=== PATIENT | male | born 1995 | race Two or more races ===

== ENCOUNTER 2020-07-29 08:18 | Emergency (ER) | payer MEDICARE, OTHER ==
[~2020-07-29] VITALS: Ht 162.6 cm; Wt 77.1 kg
--- NOTE | 2020-07-29 08:35 | NUR ---
SEEN AND EXAMINED BY .
--- NOTE | 2020-07-29 08:49 | NUR ---
FRANCHISE SALES MANAGER AT BEDSIDE FOR XRAY.
[2020-07-29 09:40] VITALS: BP 128/77
--- NOTE | 2020-07-29 09:41 | NUR ---
Patient discharged to home in stable condition. Written and verbal after care instructions given. Patient verbalizes understanding of instruction.Patient given written and verbal discharge instructions. Patient verbalizes understanding of instructions. Patient is ambulatory with steady gait. Refuses offer of half-way placement. Patient given list of available shelters in surrounding area.
== END 2020-07-29 09:40 | disposition home or self-care (01) ==
LOC: ER 08:29
DX: B35.3 Tinea pedis (principal); L03.116 Cellulitis of left lower limb; L03.115 Cellulitis of right lower limb; Z59.0 Homelessness

== ENCOUNTER 2022-03-31 11:06 | Emergency (ER) | payer MEDICARE, OTHER ==
[~2022-03-31] VITALS: Ht 160 cm; Wt 81.6 kg
--- NOTE | 2022-03-31 11:32 | NUR ---
DR. HERNANDEZ W/ PT FOR EVAL
[2022-03-31] MEDS ORDERED: OLANZAPINE 5 MG TABLET ONE (11:42)
--- NOTE | 2022-03-31 11:44 | NUR ---
PHLEB TECH AT BEDSIDE FOR BLOOD DRAW
[2022-03-31 11:53] LABS: BASOPHILS % (AUTO) 0.6 % (0.0-2.0); HEMATOCRIT 43 % (39-51); HEMOGLOBIN 14.2 g/dL (13.5-17.5); LYMPHOCYTES # (AUTO) 1.5 K/uL (0.8-4.8); LYMPHOCYTES % (AUTO) 24.7 % (20.0-44.0); MEAN CORPUSCULAR HGB CONC 33 g/dl (31.0-36.0); MEAN CORPUSCULAR VOLUME 87 fL (80-96); MONOCYTES # (AUTO) 0.4 K/uL (0.1-1.30); MONOCYTES % (AUTO) 6.9 % (2.0-12.0); NEUTROPHILS % (AUTO) 66.8 % (43.0-81.0); PLATELET COUNT (AUTO) 313 K/uL (150-450); RED BLOOD CELL COUNT(AUTO) 4.88 MIL/uL (4.5-6.0)
[2022-03-31] MEDS ORDERED: OLANZAPINE 5 MG TABLET PO ONE (12:00)
[2022-03-31 12:11] LABS: ALANINE AMINOTRANSFERASE 22 U/L (12-78); ALBUMIN 4.2 g/dL (3.4-5.0); ALKALINE PHOSPHATASE 89 U/L (46-116); ASPARTATE AMINOTRANSFERASE 16 U/L (15-37); BILIRUBIN,DIRECT 0.1 mg/dL (0.0-0.2); BILIRUBIN,TOTAL 0.5 mg/dL (0.2-1.0); CALCIUM, SERUM 9.1 mg/dL (8.5-10.1); CARBON DIOXIDE 27 mmol/L (21-32); CHLORIDE 102 mmol/L (98-107); GLUCOSE 114 mg/dL (74-106); POTASSIUM 3.7 mmol/L (3.5-5.1); SODIUM SERUM 135 mmol/L (136-145); TOTAL PROTEIN, SERUM 7.7 g/dL (6.4-8.2); UREA NITROGEN, BLOOD 12 mg/dL (7-18)
[2022-03-31 12:16] LABS: ACETAMINOPHEN < 0 ug/ml (10-30); ALCOHOL, BLOOD < 3 mg/dL (0-0)
--- NOTE | 2022-03-31 12:37 | NUR ---
URINE SAMPLE COLLECTED AND SENT TO LAB.
--- NOTE | 2022-03-31 12:42 | NUR ---
COVID SWAB DONE AND SENT TO LAB
[2022-03-31 13:25] LABS: BILIRUBIN,URINE NEGATIVE (NEGATIVE); COLOR,URINE YELLOW (YELLOW); LEUKOCYTE ESTERASE ,URINE NEGATIVE (NEGATIVE); NITRITE, URINE NEGATIVE (NEGATIVE); PROTEIN,URINE NEGATIVE (NEGATIVE); UGLUCOSE NEGATIVE (NEGATIVE)
[2022-03-31 13:48] LABS: BACTERIA,URINE Rare /HPF (None Seen); SPERM,URINE Few /HPF (None Seen); SQUAMOUS EPITHELIAL CELL,UR Few /HPF (None Seen); WBC,URINE 0-2 /HPF (0-3)
--- NOTE | 2022-03-31 14:57 | NUR ---
Patient discharged to home in stable condition. Written and verbal after care instructions given. Patient verbalizes understanding of instruction.
[2022-03-31 14:59] VITALS: BP 126/62
== END 2022-03-31 14:59 | disposition home or self-care (01) ==
LOC: ER 11:14
DX: R46.2 Strange and inexplicable behavior (principal); Z20.822 Contact with and (suspected) exposure to COVID-19; Z59.01 Sheltered homelessness
CPT/HCPCS: 36415; 80048-TC; 80076-TC; 81001; 85025-TC; C9803; G0480

== ENCOUNTER 2023-04-20 11:11 | Emergency (ER) | payer MEDICARE, OTHER ==
[~2023-04-20] VITALS: Ht 162.6 cm; Wt 82.6 kg
[~2023-04-20 11:11] MED LIST: CEPH500C2 PO; SULF1TAB48 PO; TERB250T52 PO
[2023-04-20 11:26] VITALS: BP 101/58; TEMP 98.3; O2SAT 98
[2023-04-20] MEDS ORDERED: CLOT10SO TP (11:29)
== END 2023-04-20 11:25 | disposition home or self-care (01) ==
LOC: ER 11:16
DX: B35.3 Tinea pedis (principal); F17.200 Nicotine dependence, unspecified, uncomplicated; Z59.00 Homelessness unspecified; Z60.2 Problems related to living alone

== ENCOUNTER 2023-04-24 15:06 | Emergency (ER) | payer MEDICARE, OTHER ==
[~2023-04-24] VITALS: Ht 162.6 cm; Wt 77.1 kg
[~2023-04-24 15:06] MED LIST changes: +CLOT10SO TP
[2023-04-24 15:14] VITALS: BP 104/63; TEMP 98.3
[2023-04-24 15:44] VITALS: O2SAT 99
== END 2023-04-24 15:46 | disposition home or self-care (01) ==
LOC: ER 15:33
DX: Z00.00 Encounter for general adult medical examination without abnormal findings (principal); F17.200 Nicotine dependence, unspecified, uncomplicated; Z60.2 Problems related to living alone

== ENCOUNTER 2023-05-10 11:21 | Emergency (ER) | payer MEDICARE, OTHER ==
[~2023-05-10] VITALS: Ht 165.1 cm; Wt 54.4 kg
[2023-05-10 11:55] VITALS: BP 131/75; TEMP 98.7
[2023-05-10] MEDS ORDERED: SULF1TAB48 PO (12:41)
[2023-05-10] MEDS ORDERED: TERB250T52 PO (12:41)
[2023-05-10 12:49] VITALS: O2SAT 100
== END 2023-05-10 12:49 | disposition home or self-care (01) ==
LOC: ER 11:24
DX: B35.3 Tinea pedis (principal); Z79.899 Other long term (current) drug therapy

== ENCOUNTER 2023-06-03 10:30 | Emergency (ER) | payer MEDICARE, OTHER ==
[~2023-06-03] VITALS: Ht 157.5 cm; Wt 77.1 kg
[2023-06-03 10:37] VITALS: BP 136/64; TEMP 98.4; O2SAT 100
[2023-06-03] MEDS ORDERED: LORAZEPAM 1 MG TABLET ONE (11:57)
[2023-06-03] MEDS ORDERED: LORAZEPAM 1 MG TABLET PO ONE (12:00)
== END 2023-06-03 12:09 | disposition home or self-care (01) ==
LOC: ER 10:35
DX: F15.90 Other stimulant use, unspecified, uncomplicated (principal)

== ENCOUNTER 2023-11-04 16:25 | Emergency (ER) | payer MEDICARE, OTHER | END 2023-11-04 17:15 | disposition left against medical advice (07) | LOC: ER 16:28 | DX: R50.9 Fever, unspecified (principal); R63.0 Anorexia; Z53.21 Procedure and treatment not carried out due to patient leaving prior to being seen by health care provider ==

== ENCOUNTER 2023-11-05 03:21 | Emergency (ER) | payer MEDICARE, OTHER | END 2023-11-05 04:35 | disposition left against medical advice (07) | LOC: ER 03:28 | DX: R50.9 Fever, unspecified (principal); Z53.21 Procedure and treatment not carried out due to patient leaving prior to being seen by health care provider ==

== ENCOUNTER 2023-11-09 17:49 | Emergency (ER) | payer MEDICARE, OTHER ==
[~2023-11-09] VITALS: Ht 162.6 cm; Wt 81.6 kg
[2023-11-09 18:24] VITALS: BP 139/66; TEMP 97.9
[2023-11-09] MEDS ORDERED: CEPH500C2 PO (18:59)
[2023-11-09 19:11] VITALS: O2SAT 100
== END 2023-11-09 19:11 | disposition home or self-care (01) ==
LOC: ER 17:55
DX: L03.115 Cellulitis of right lower limb (principal); Z60.2 Problems related to living alone

== ENCOUNTER 2023-11-13 18:51 | Emergency (ER) | payer MEDICARE, OTHER ==
[~2023-11-13] VITALS: Ht 162.6 cm; Wt 65.8 kg
[2023-11-13 21:22] VITALS: BP 126/69; TEMP 98.7; O2SAT 99
[2023-11-13] MEDS ORDERED: IBUPROFEN 400 MG TABLET ONE (22:37)
[2023-11-13] MEDS: IBUPROFEN 400 MG TABLET PO ONE (22:51)
== END 2023-11-13 22:51 | disposition home or self-care (01) ==
LOC: ER 18:51
DX: S90.31XA Contusion of right foot, initial encounter (principal); Z60.2 Problems related to living alone; W22.8XXA Striking against or struck by other objects, initial encounter; Y93.89 Activity, other specified; Y92.89 Other specified places as the place of occurrence of the external cause; Y99.8 Other external cause status
CPT/HCPCS: 73630-TC

== ENCOUNTER 2023-11-15 14:20 | Emergency (ER) | payer MEDICARE, OTHER | END 2023-11-15 15:07 | disposition left against medical advice (07) | LOC: ER 14:20 | DX: S00.83XA Contusion of other part of head, initial encounter (principal); M79.606 Pain in leg, unspecified; Z53.21 Procedure and treatment not carried out due to patient leaving prior to being seen by health care provider; X58.XXXA Exposure to other specified factors, initial encounter; Y93.89 Activity, other specified; Y92.89 Other specified places as the place of occurrence of the external cause; Y99.8 Other external cause status ==

== ENCOUNTER 2023-11-18 18:35 | Emergency (ER) | payer MEDICARE, OTHER ==
[~2023-11-18] VITALS: Ht 162.6 cm; Wt 72.6 kg
[2023-11-18] MEDS ORDERED: IBUPROFEN 600 MG TABLET ONE (20:41)
[2023-11-18] MEDS ORDERED: ACETAMINOPHEN 325 MG TABLET ONE (20:41)
[2023-11-18] MEDS: IBUPROFEN 600 MG TABLET PO ONE (20:43)
[2023-11-18] MEDS: ACETAMINOPHEN 325 MG TABLET PO ONE (20:43)
[2023-11-18] MEDS ORDERED: ACET325C7 PO (21:11)
[2023-11-18] MEDS ORDERED: IBUP-1955 PO (21:11)
[2023-11-18 21:24] VITALS: BP 112/68; TEMP 98; O2SAT 99
== END 2023-11-18 21:24 | disposition home or self-care (01) ==
LOC: ER 18:43
DX: M79.671 Pain in right foot (principal); F17.200 Nicotine dependence, unspecified, uncomplicated; Z60.2 Problems related to living alone; Z79.899 Other long term (current) drug therapy
CPT/HCPCS: 73610-TC; 73630-TC

== ENCOUNTER 2023-11-26 04:24 | Emergency (ER) | payer MEDICARE, OTHER ==
[~2023-11-26] VITALS: Ht 162.6 cm; Wt 74.8 kg
[~2023-11-26 04:24] MED LIST changes: +ACET325C7 PO; +IBUP-1955 PO
[2023-11-26 05:26] LABS: BASOPHILS % (AUTO) 0.5 % (0.0-2.0); EOSINOPHILS # (AUTO) 0.1 K/uL (0.0-0.7); EOSINOPHILS % (AUTO) 2.5 % (0.0-6.0); HEMATOCRIT 39 % (39-51); HEMOGLOBIN 13.1 g/dL (13.5-17.5); LYMPHOCYTES # (AUTO) 1.9 K/uL (0.8-4.8); LYMPHOCYTES % (AUTO) 39.6 % (20.0-44.0); MEAN CORPUSCULAR HEMOGLOBIN 31 PG (26.0-33.0); MEAN CORPUSCULAR HGB CONC 34 g/dl (31.0-36.0); MEAN CORPUSCULAR VOLUME 91 fL (80-96); MONOCYTES # (AUTO) 0.3 K/uL (0.1-1.30); MONOCYTES % (AUTO) 7.1 % (2.0-12.0); NEUTROPHILS # (AUTO) 2.4 K/uL (1.8-8.9); NEUTROPHILS % (AUTO) 50.3 % (43.0-81.0); PLATELET COUNT (AUTO) 491 K/uL (150-450); RED BLOOD CELL COUNT(AUTO) 4.26 MIL/uL (4.5-6.0); WHITE BLOOD COUNT (AUTO) 4.7 K/uL (4.3-11.0)
[2023-11-26 05:47] LABS: ALANINE AMINOTRANSFERASE 26 U/L (12-78); ALBUMIN 3.7 g/dL (3.4-5.0); ALCOHOL, BLOOD < 3 mg/dL (0-10); ALKALINE PHOSPHATASE 101 U/L (46-116); ASPARTATE AMINOTRANSFERASE 14 U/L (15-37); BILIRUBIN,DIRECT 0.1 mg/dL (0.0-0.2); BILIRUBIN,TOTAL 0.2 mg/dL (0.2-1.0); CALCIUM, SERUM 8.9 mg/dL (8.5-10.1); CARBON DIOXIDE 29 mmol/L (21-32); CHLORIDE 103 mmol/L (98-107); GLUCOSE 96 mg/dL (74-106); POTASSIUM 3.5 mmol/L (3.5-5.1); SODIUM SERUM 141 mmol/L (136-145); TOTAL PROTEIN, SERUM 7.1 g/dL (6.4-8.2); UREA NITROGEN, BLOOD 18 mg/dL (7-18)
[2023-11-26 05:50] LABS: ACETAMINOPHEN <10 ug/ml (10-30); SALICYLATE 1.6 mg/dL (2.8-20.0)
[2023-11-26 06:55] LABS: APPEARANCE,URINE CLEAR (CLEAR); BILIRUBIN,URINE NEGATIVE (NEGATIVE); BLOOD, URINE TRACE-INTA Ery/uL (NEGATIVE); COLOR,URINE YELLOW (YELLOW); KETONES,URINE NEGATIVE (NEGATIVE); LEUKOCYTE ESTERASE ,URINE NEGATIVE (NEGATIVE); NITRITE, URINE NEGATIVE (NEGATIVE); PROTEIN,URINE NEGATIVE (NEGATIVE); UGLUCOSE NEGATIVE (NEGATIVE); UROBILINOGEN,URINE 0.2 EU/dL (0.2)
[2023-11-26 06:58] LABS: ADD URINE CULTURE NO; BACTERIA,URINE None seen /HPF (None Seen); SQUAMOUS EPITHELIAL CELL,UR Few /HPF (None Seen); WBC,URINE 0-2 /HPF (0-3)
[2023-11-26 07:07] LABS: BARBITURATE, URINE NEGATIVE (NEGATIVE); BENZODIAZEPINE, URINE NEGATIVE (NEGATIVE); CANNABINOID, URINE NEGATIVE (NEGATIVE); COCCAINE, URINE NEGATIVE (NEGATIVE); OPIATE, URINE NEGATIVE (NEGATIVE); PHENCYCLIDINE SCREEN,URINE NEGATIVE (NEGATIVE)
[2023-11-26 07:08] LABS: AMPHETAMINE, URINE POSITIVE (NEGATIVE)
[2023-11-26 13:00] VITALS: BP 132/66; TEMP 98.1; O2SAT 98
== END 2023-11-26 14:33 ==
LOC: ER 04:27
DX: F32.A Depression, unspecified (principal); Z60.2 Problems related to living alone; Z79.899 Other long term (current) drug therapy; Z20.822 Contact with and (suspected) exposure to COVID-19
CPT/HCPCS: 36415; 80048-TC; 80076-TC; 81001; 85025-TC; G0480

== ENCOUNTER 2023-12-03 09:23 | Emergency (ER) | payer MEDICARE, OTHER ==
[~2023-12-03] VITALS: Ht 167.6 cm; Wt 65.8 kg
[2023-12-03 11:10] VITALS: BP 112/65; TEMP 98.2
[2023-12-03] MEDS ORDERED: KETOROLAC TROMETHAMINE 15 MG/ML VIAL ONE (11:59)
[2023-12-03] MEDS: KETOROLAC TROMETHAMINE 15 MG/ML VIAL IM ONE (12:05)
[2023-12-03] MEDS ORDERED: IBUP-1955 PO (12:17)
[2023-12-03 12:22] VITALS: O2SAT 99
== END 2023-12-03 12:23 | disposition home or self-care (01) ==
LOC: ER 09:27
DX: S93.601A Unspecified sprain of right foot, initial encounter (principal); W18.40XA Slipping, tripping and stumbling without falling, unspecified, initial encounter; Y93.89 Activity, other specified; Y92.89 Other specified places as the place of occurrence of the external cause; Y99.8 Other external cause status
CPT/HCPCS: 99283; 96372; 73630; J1885

== ENCOUNTER 2023-12-09 15:53 | Emergency (ER) | payer MEDICARE, OTHER ==
[~2023-12-09] VITALS: Ht 154.9 cm; Wt 54.4 kg
[2023-12-09 16:02] VITALS: BP 100/52; TEMP 98; O2SAT 98
[2023-12-09] MEDS ORDERED: KETOROLAC TROMETHAMINE 15 MG/ML VIAL ONE (16:59)
[2023-12-09] MEDS: KETOROLAC TROMETHAMINE 15 MG/ML VIAL IV ONE (17:00)
== END 2023-12-09 19:01 | disposition home or self-care (01) ==
LOC: ER 15:56
DX: R59.0 Localized enlarged lymph nodes (principal); Z60.2 Problems related to living alone; Z79.899 Other long term (current) drug therapy
CPT/HCPCS: 99285; 96372; 76882; J1885

== ENCOUNTER 2023-12-14 03:00 | Emergency (ER) | payer MEDICARE, OTHER ==
[~2023-12-14] VITALS: Ht 162.6 cm; Wt 59.0 kg
[2023-12-14 04:19] VITALS: BP 147/88; TEMP 97.9; O2SAT 96
[2023-12-14] MEDS ORDERED: CLIN300C12 PO (04:48)
[2023-12-14] MEDS ORDERED: TRAM50TA2 PO (04:48)
[2023-12-14] MEDS ORDERED: CLINDAMYCIN HCL 150 MG CAPSULE ONE (04:52)
[2023-12-14] MEDS ORDERED: TRAMADOL HCL 50 MG TABLET ONE (04:52)
[2023-12-14] MEDS: TRAMADOL HCL 50 MG TABLET PO ONE (05:02)
[2023-12-14] MEDS: CLINDAMYCIN HCL 150 MG CAPSULE PO ONE (05:02)
== END 2023-12-14 05:07 | disposition home or self-care (01) ==
LOC: ER 03:00
DX: R59.0 Localized enlarged lymph nodes (principal); M79.604 Pain in right leg; F17.210 Nicotine dependence, cigarettes, uncomplicated; Z60.2 Problems related to living alone; Z79.899 Other long term (current) drug therapy

== ENCOUNTER 2023-12-16 02:30 | Emergency (ER) | payer MEDICARE, OTHER ==
[~2023-12-16] VITALS: Ht 162.6 cm; Wt 63.5 kg
[~2023-12-16 02:30] MED LIST changes: +CLIN300C12 PO; +TRAM50TA2 PO
[2023-12-16 02:58] VITALS: BP 117/68; TEMP 97.7; O2SAT 100
== END 2023-12-16 03:13 | disposition home or self-care (01) ==
LOC: ER 02:30
DX: Z00.00 Encounter for general adult medical examination without abnormal findings (principal); F17.200 Nicotine dependence, unspecified, uncomplicated; Z60.2 Problems related to living alone; Z79.899 Other long term (current) drug therapy

== ENCOUNTER 2024-09-25 11:40 | Emergency (ER) | payer MEDICARE, OTHER | END 2024-09-25 13:30 | disposition left against medical advice (07) | LOC: ER 11:40 | DX: Z00.00 Encounter for general adult medical examination without abnormal findings (principal); Z53.21 Procedure and treatment not carried out due to patient leaving prior to being seen by health care provider ==

== ENCOUNTER 2025-01-20 07:54 | Emergency (ER) | payer MEDICARE, OTHER ==
[~2025-01-20] VITALS: Ht 162.6 cm; Wt 59.0 kg
[2025-01-20 08:07] VITALS: BP 101/69; TEMP 98
[2025-01-20] MEDS ORDERED: DIPH25CA83 PO (08:22)
[2025-01-20 08:29] VITALS: O2SAT 100
== END 2025-01-20 08:30 | disposition home or self-care (01) ==
LOC: ER 08:17
DX: L29.9 Pruritus, unspecified (principal); F17.200 Nicotine dependence, unspecified, uncomplicated; Z59.00 Homelessness unspecified; Z79.899 Other long term (current) drug therapy

== ENCOUNTER 2025-04-06 19:27 | Emergency (ER) | payer MEDICARE ==
[~2025-04-06] VITALS: Ht 162.6 cm; Wt 81.6 kg
[~2025-04-06 19:27] MED LIST changes: +DIPH25CA83 PO
[2025-04-06 22:28] VITALS: BP 117/72; TEMP 97.9; O2SAT 95
[2025-04-06] MEDS ORDERED: IBUPROFEN 400 MG TABLET ONE (22:30)
[2025-04-06] MEDS: IBUPROFEN 400 MG TABLET PO ONE (22:35)
== END 2025-04-06 22:36 | disposition home or self-care (01) ==
LOC: ER 19:31
DX: R51.9 Headache, unspecified (principal); F17.200 Nicotine dependence, unspecified, uncomplicated; Z60.2 Problems related to living alone; Z79.899 Other long term (current) drug therapy; Z59.00 Homelessness unspecified